=== PATIENT | female | born 1955 | race Caucasian/White ===

== ENCOUNTER 2017-01-25 10:12 | Day surgery (SDC) | payer BC ==
--- NOTE | ~2017-01-25 | OP ---
Record Of Operation [facility] [address] [place]. [address] NAME: ARIES RABAGO : 53 STATUS : [facility]#: [id number] AGE: 61 ADM/REG DATE : 01/25/17 MR#: [id number] REPORT SERV DATE: 01/25/17 DICTATED BY: BRICE GIRALDO DATE: 01/25/17 REPORT STATUS : Draft TRANSCRIBED BY: MODMelina DATE: 01/25/17 DATE OF PROCEDURE: PREOPERATIVE DIAGNOSIS: Right breast locally-advanced breast cancer. POSTOPERATIVE DIAGNOSIS: Right breast locally-advanced breast cancer. PROCEDURE: 1. Placement of a left chest wall venous port, internal jugular access. 2. Intraoperative fluoroscopy with interpretation. 3. Intraoperative ultrasound for vein access. INDICATION FOR THE PROCEDURE: Ms. Rabago is a 61-year-old healthy female, who had two lobular cancers in the right breast. Bilateral mastectomies have been performed, she ended up having some significant risk for recurrence both locally and systemically, and chemotherapy and radiation have been advised. The patient will need a port for chemotherapy which will come next. OPERATIVE FINDINGS: After appropriate consent was on the chart, the patient was taken to the operating room in supine position. She was placed under monitored anesthesia without complication. The internal jugular vein was visualized using ultrasound, it was in the normal anatomic position and patent. The bilateral chest wall were prepped and draped in sterile fashion. With the draped ultrasound probe, the left internal jugular vein was again re-visualized. Local anesthetic was infiltrated in the skin and soft tissues and the Seldinger needle utilized to enter the left internal jugular vein with a single pass. Nonpulsatile venous appearing blood was noted in the syringe. However, due to the patient's significant snoring it was difficult to get the wire to pass without collapse of the vessel from the snoring. Multiple attempts were made, fluoroscopy was utilized to ensure that the wire was not passing. An additional attempt was made with subclavian vein again nonpulsatile venous appearing blood noted in the syringe. However, before the wire could be passed the syringe did clot off. Multiple attempts were futile, secondary to quick clotting of the patient's blood. Finally, on the final attempt of an internal jugular access under ultrasound guidance, the left internal jugular vein was accessed. The assistant fitness manager in the room pulled the left arm toward the patient's feet and the wire did pass with ease. Fluoroscopy noted to be in good position in the vena cava. At this point, the wire was secured, the port pocket was created. An incision was made with a #15 blade and Bovie cauterization utilized to create the port pocket. Stay sutures were placed at 3 o'clock and 9 o'clock position with Prolene. The vein access site was lengthened with an #11 blade and the tunneling device utilized to create the new subcutaneous tunnel. The catheter was pulled through without problem. The dilator with sheath were then passed over the wire, with constant movement of the wire, the vein was dilated easily. The wire and dilator were removed from the sheath leaving the sheath in the vein per routine. As the catheter was being placed into the sheath, it met resistance at approximately 10 cm. This was the same area that the wire was meeting resistance. I had the radio station operator pull the arm toward the feet, however, this was futile and we could not get the catheter passed into the sheath. The wire was then placed into the catheter for rigidity and the catheter was then able to Record Of Operation [address] [place]. [address] NAME: ARIES RABAGO : 53 STATUS : [facility] PAT#: [id number] AGE: 61 ADM/REG DATE : 01/25/17 MR#: [id number] REPORT SERV DATE: 01/25/17 DICTATED BY: BRICE GIRALDO DATE: 01/25/17 REPORT STATUS : Draft TRANSCRIBED BY: MODMelina DATE: 01/25/17 pass with some significant force into the sheath. Fluoroscopy noted the wire to be in good position with the catheter over top and the sheath was torn away. The wire was then removed from the catheter and the catheter pulled back to the atriocaval junction. At this point, the catheter was attached to the port and the port noted to aspirate and flush with ease. The port did have to be pulled back approximately an additional 2 cm away from the vein wall to get the port to aspirate easily. The port was then secured into the port pocket. It was somewhat shorter than I would have preferred on the fluoroscopic view, slightly higher than atriocaval junction. This should still suffice for use. The port was irrigated and the incision closed in two layers of Monocryl. A single stitch was placed in the neck for closure of the stab incision. Both incisions were cleansed and dried. Dermabond were overlaid. Telfa and Tegaderm were placed on the patient. The patient was awoken from anesthesia without complication and taken the PACU in stable condition for recovery. A chest x-ray will be obtained in recovery. All counts were correct at the end of the case. ESTIMATED BLOOD LOSS: 30 mL. COMPLICATIONS: Difficulty with passing of the wire and the catheter, as well as difficulty with clotting of the patient's blood. PRICILA/MODL Brice Giraldo MD / [id number] CC: MD Pj Carrion M.D. [facility] Julia Baldwin M.D.
[~2017-01-25 10:12] MED LIST: ADVAIR250 INH; ALEVE220 MG PO; AVAPRO75 PO; BUSPAR5 PO; CORTEF20 MG PO; DDAVP 0.01%; DDAVP0.1 MG PO; EVAMIST1.53 MG TD; LEXAPRO10 PO; LEXAPRO20 PO; MOMUD PO; NEXIUM40 PO; PROAIR HFA INH; PROMETRIUM PO; PROMETRIUM200 MG PO; PROTONIX PO; SYN112 PO; SYN125 PO; TRAZ50 PO; ZYRTEC ALLGY10 MG PO; [UNRECOGNIZED DRUG - OTHER]
== END 2017-01-25 17:47 | disposition home or self-care (01) ==
LOC: SDC 10:12
PROVIDERS: Surgery Surgical Oncology
PROC: B5141ZA Fluoroscopy of Left Jugular Veins using Low Osmolar Contrast, Guidance (ICD-10-PCS; 2017-01-25)
PROC: 05HN33Z Insertion of Infusion Device into Left Internal Jugular Vein, Percutaneous Approach (ICD-10-PCS; principal; 2017-01-25 14:00)
DX: C50.911 Malignant neoplasm of unspecified site of right female breast (principal); I10 Essential (primary) hypertension; K21.9 Gastro-esophageal reflux disease without esophagitis; E66.9 Obesity, unspecified; J45.909 Unspecified asthma, uncomplicated; E27.1 Primary adrenocortical insufficiency; E11.9 Type 2 diabetes mellitus without complications; E24.9 Cushing's syndrome, unspecified; Z79.899 Other long term (current) drug therapy; Z98.890 Other specified postprocedural states; Z79.891 Long term (current) use of opiate analgesic; Z79.52 Long term (current) use of systemic steroids; Z91.040 Latex allergy status
CPT/HCPCS: 71010; 77001; 80048; 85014; 85018; A9270-GY; C1751; J0690; J2250; J2405; J3010

== ENCOUNTER 2017-02-09 08:17 | Emergency (ER) | payer BC ==
[2017-02-09 08:57] LABS: BASOPHILS 0.2 %; BASOPHILS ABSOLUTE 0.08 10/3/uL (0.0-0.16); EOSINOPHILS 0 %; HEMOGLOBIN 8.8 g/dL (12.0-16.0); IMMATURE GRANULOCYTES 12.7 %; LYMPHOCYTES 1.3 %; LYMPHOCYTES ABSOLUTE 0.45 10/3/uL (0.67-4.30); MEAN CORPUS HGB CONC 33.6 g/dL (32.0-36.0); MEAN CORPUSCULAR HEMOGLOB 28.9 pg (26.0-34.0); MEAN CORPUSCULAR VOLUME 86.2 fL (80-100); MONOCYTES 0.1 %; MONOCYTES ABSOLUTE 0.02 10/3/uL (0.21-1.20); NEUTROPHILS 85.7 %; NEUTROPHILS ABSOLUTE 29.95 10/3/uL (2.02-8.40); PLATELET COUNT 286 10/3/uL (150-400); RBC DISTRIBUTION WIDTH 14.4 % (12.0-16.0)
[2017-02-09 08:58] LABS: HEMATOCRIT 26.2 % (36.0-48.0); IMMATURE GRANULOCYTES ABSOLUTE 4.45 10/3/uL (0.0-0.11); MANUAL DIFF NO %; RED CELL COUNT 3.04 10/6/uL (4.0-5.6)
[2017-02-09 09:16] LABS: A/G RATIO 1.1 (0.7-1.9); ALKALINE PHOSPHATASE 72 U/L (45-117); CALCIUM, SERUM 7.7 MG/DL (8.5-10.4); CHLORIDE, SERUM 101 MMOL/L (96-112); CO2 (CARBON DIOXIDE) 29 MMOL/L (24-34); GLOBULIN 2.7 G/DL (2.5-4.1); GLUCOSE, SERUM 114 MG/DL (60-99); POTASSIUM, SERUM 3.5 MMOL/L (3.5-5.3); SGOT(AST) 7 U/L (5-40); SGPT(ALT) 18 U/L (5-65); SODIUM, SERUM 139 MMOL/L (135-148); TOTAL BILIRUBIN 0.5 MG/DL (0-1.2); TOTAL PROTEIN 5.6 G/DL (6.0-8.5)
[2017-02-09 09:19] LABS: ALBUMIN 2.9 G/DL (3.5-5.0); BUN (BLOOD UREA NITROGEN) 20 MG/DL (6-23); CREATININE 1.05 MG/DL (0.55-1.02); GFR AFRICAN AMERICAN 66 ML/MIN (>=60); GFR NON AFRICAN AMERICAN 57 ML/MIN (>=60)
[2017-02-09 09:33] LABS: ASCORBIC ACID (UR NOT ORDER) NEG (NEG); BILIRUBIN, URINE NEGATIVE (NEG); ER URINALYSIS TAT 0 Hrs 22 Mins; KETONE, URINE NEGATIVE (NEG); NITRITE (URINE) NEG (NEG); WBC (NOT ORDERED) (RFLEX) 3 (0-5)
[2017-02-09 09:34] LABS: LEUKOCYTE ESTERASE(NOT OR TRACE (NEG)
[2017-02-09 09:39] LABS: BAND NEUTROPHILS 3 %; ER DIFF TAT 0 Hrs 47 Mins; LYMPHOCYTES 2 %; MONOCYTES 1 %; MONOCYTES ABSOLUTE (CALC) 0.35 10/3/uL (0.21-1.20); NEUTROPHILS ABSOLUTE (CALC) 33.95 10/3/uL (2.02-8.40); PLATELET ESTIMATE ADQ (ADEQUATE); RBC MORPHOLOGY NORM (NORMAL); SEGMENTED NEUTROPHIL (0) 94 %; TOTAL NUCLEATED CELLS 100
[2017-02-09 10:03] LABS: INFLUENZA A SCREEN NEGATIVE (NEGATIVE); INFLUENZA B SCREEN NEGATIVE (NEGATIVE)
== END 2017-02-09 11:31 | disposition home or self-care (01) ==
LOC: ER 08:17
PROVIDERS: Emergency Medicine
DX: R50.9 Fever, unspecified (principal); D72.829 Elevated white blood cell count, unspecified; J45.909 Unspecified asthma, uncomplicated; I10 Essential (primary) hypertension; K21.9 Gastro-esophageal reflux disease without esophagitis; F32.9 Major depressive disorder, single episode, unspecified; E11.9 Type 2 diabetes mellitus without complications; Z87.442 Personal history of urinary calculi; Z91.09 Other allergy status, other than to drugs and biological substances; Z79.899 Other long term (current) drug therapy
CPT/HCPCS: 71010; 80053; 81001; 83605; 85025; 87040; 87070; 87804; 87880; 93005; 96365; 99285; A9270-GY; J0692